=== PATIENT | female | born 1965 | race Caucasian/White ===

== ENCOUNTER 2016-09-16 12:57 | Emergency (ER) | payer SELFPAY ==
[~2016-09-16] VITALS: Ht 170.2 cm; Wt 77.3 kg
[2016-09-16 12:59] VITALS: BP 140/78; PULSE 74; RESP 17; TEMP 98.6; O2SAT 99
[2016-09-16 14:30] VITALS: BP_SYST 100; BP_SYST 139; BP_DIAS 62
[2016-09-16] MEDS ORDERED: SODIUM CHLOR 0.9% 1000 ML INJ 1,000 ML IV ONE (14:45)
[2016-09-16] MEDS ORDERED: KETOROLAC TROMETHAMINE 30 MG/ML (IVP) VIAL IV PUSH ONE (14:45)
--- NOTE | 2016-09-16 15:12 | RADRPT ---
EXAM DATE/TIME: 09/16/2016 15:04 [place] COMPARISON: No previous studies available for comparison. INDICATIONS : Shortness of breath. MEDICAL HISTORY : None. SURGICAL HISTORY : None. ENCOUNTER: Initial ACUITY: 1 month PAIN SCORE: 6/10 LOCATION: Bilateral chest FINDINGS: The lungs are clear without infiltrate, nodule, or mass. There is no appreciable pleural effusion fo r technique. Heart and mediastinum are unremarkable. CONCLUSION: No acute cardiopulmonary disease. Bobby Benson MD on September 16, 2016 at 15:11 Board Certified Radiologist. This report was verified electronically.
[2016-09-16 15:55] LABS: AUTOMATED NEUTROPHIL # 4.7 TH/MM3 (1.8-7.7); BASOPHIL % 0.6 % (0.0-2.0); EOSINOPHIL # 0.2 TH/MM3 (0-0.4); EOSINOPHIL % 2.7 % (0.0-4.0); HEMATOCRIT 36.2 % (35.0-46.0); HEMO FLAGS DIFF FINAL; LYMPH % 28.1 % (9.0-44.0); LYMPHOCYTE # 2.1 TH/MM3 (1.0-4.8); MEAN CORPUSCULAR HEMOGLOBIN 30.7 PG (27.0-34.0); MEAN CORPUSCULAR HGB CONC 32.6 % (32.0-36.0); NEUT % 61.6 % (16.0-70.0); PLATELET COUNT 259 TH/MM3 (150-450); RED BLOOD COUNT 3.85 MIL/MM3 (4.00-5.30); RED CELL DISTRIBUTION WIDTH 13.1 % (11.6-17.2); WHITE BLOOD COUNT 7.6 TH/MM3 (4.0-11.0)
[2016-09-16 16:02] LABS: BACTERIA, URINE RARE /hpf; BLOOD, URINE SMALL (NEG); COMMENT (UR) CULT NOT INDICATED; CULTURE IF INDICATED CULT NOT INDICATED; GLUCOSE,URINE NEG (NEG); KETONE, URINE NEG (NEG); MUCUS URINE FEW /lpf (OCC); NITRITE,URINE NEG (NEG); SQUAMOUS EPITHELIAL CELL URINE 1 /hpf (0-5); URINE COLOR YELLOW (YELLW/STRAW)
[2016-09-16 16:05] LABS: ALT (GPT) 41 U/L (10-53); ANION GAP 7 MEQ/L (5-15); AST (GOT) 21 U/L (15-37); BICARBONATE 25.3 MEQ/L (21.0-32.0); BLOOD UREA NITROGEN 13 MG/DL (7-18); CHLORIDE 104 MEQ/L (98-107); GLOMERULAR FILTRATION RATE 109 ML/MIN (>89); POTASSIUM 3.8 MEQ/L (3.5-5.1); SODIUM (NA) 136 MEQ/L (136-145)
[2016-09-16 16:09] LABS: ALKALINE PHOSPHATASE 67 U/L (45-117); APTT (PATIENT) 25.4 SEC (24.3-30.1); INTERNATIONAL NORMALIZED RATIO 0.9 RATIO; PROTHROMBIN TIME - PATIENT 9.8 SEC (9.8-11.6); TOTAL BILIRUBIN ADULT 0.3 MG/DL (0.2-1.0)
[2016-09-16 17:06] VITALS: BP 130/74
--- NOTE | 2016-09-16 17:15 | PD ---
HPI Chief Complaint: General Weakness Time Seen by Provider: 14:36 Travel History International Travel<30 days: No Contact w/Intl Traveler<30days: No Traveled to known affect area: No History of Present Illness HPI Patient is a 51-year-old female comes in with multiple chronic medical complaints. She says that she thinks she is dehydrated. She says that she moved here 3 weeks ago from [place]. She says in [place] she was being seen by her doctor for blood in her urine and possible kidney issues. Says she has some lower back pain. She denies fever or chills. She reports a chronic issue with vomiting, mostly in the morning. She says it seems like it is mostly acid. She says she has been drinking a lot of water, including coconut water and alkalize water. She currently does not have a primary care doctor. She denies any chest pain. She says occasionally she feels short of breath. She denies any leg swelling or pain. PFS Past Medical History Medical History: Denies Significant Hx Cardiovascular Problems: Yes (HTN) Tetanus Vaccination: < 5 Years ?: Not : 3 Para: 3 Past Surgical History Section: Yes Cholecystectomy: Yes Social History Alcohol Use: No Tobacco Use: No Substance Use: No Allergies-Medications (Allergen,Severity, Reaction): Coded Allergies: No Known Allergies (Unverified , 09/16/16) Reported Meds & Prescriptions Reported Meds & Active Scripts Active No Active Prescriptions or Reported Medications Review of Systems Except as stated in HPI: all other systems reviewed are Neg General / Constitutional: No: Fever, Chills Eyes: No: Blurred Vision HENT: No: Headaches, Lightheadedness Cardiovascular: No: Chest Pain or Discomfort Respiratory: Positive: Shortness of Breath Gastrointestinal: Positive: Vomiting, No: Abdominal Pain Musculoskeletal: Positive: Pain Skin: No Rash, No Itching, No Change in Pigmentation Neurologic: No: Weakness, Dizziness Physical Exam Narrative GENERAL: Awake and alert, in no acute distress. SKIN: Focused skin assessment warm/dry. HEAD: Atraumatic. Normocephalic. EYES: Pupils equal and round. No scleral icterus. ENT: Mucous membranes pink and moist. NECK: Trachea midline. No JVD. CARDIOVASCULAR: Regular rate and rhythm. No murmur appreciated. RESPIRATORY: No accessory muscle use. Clear to auscultation. Breath sounds equal bilaterally. GASTROINTESTINAL: Abdomen soft, non-tender, nondistended. No CVA tenderness. MUSCULOSKELETAL: No obvious deformities. No clubbing. No cyanosis. No edema. Paraspinal muscle tenderness in the lower lumbar spine. NEUROLOGICAL: Awake and alert. No obvious cranial nerve deficits. Motor grossly within normal limits. Normal speech. PSYCHIATRIC: Appropriate mood and affect; insight and judgment normal. Data Data Last Documented VS Vital Signs Date Time Temp Pulse Resp B/P Pulse Ox O2 Delivery O2 Flow Rate FiO2 09/16/16 17:06 130/74 09/16/16 12:59 98.6 74 17 99 Room Air Orders Complete Blood Count With Diff (09/16/16 14:44) Comprehensive Metabolic Panel (09/16/16 14:44) Troponin I (09/16/16 14:44) Electrocardiogram (09/16/16 ) Iv Access Insert/Monitor (09/16/16 14:44) D-Dimer (09/16/16 14:44) Act Partial Throm Time (Ptt) (09/16/16 14:44) Prothrombin Time / Inr (Pt) (09/16/16 14:44) Chest, Pa & Lat (09/16/16 ) Urinalysis - C+S If Indicated (09/16/16 14:44) Sodium Chlor 0.9% 1000 Ml Inj (Ns 1000 M (09/16/16 14:45) Ketorolac Inj (Toradol Inj) (09/16/16 14:45) Mandatory Outpatient Referral (09/16/16 16:52) Labs Laboratory Tests Test 09/16/16 09/16/16 13:12 13:15 Urine Color YELLOW Urine Turbidity CLEAR Urine pH 6.0 Urine Specific [place] 1.022 Urine Protein NEG mg/dL Urine Glucose (UA) NEG mg/dL Urine Ketones NEG mg/dL Urine Occult Blood SMALL Urine Nitrite NEG Urine Bilirubin NEG Urine Urobilinogen LESS THAN 2.0 MG/DL Urine Leukocyte Esterase NEG Urine RBC 5 /hpf Urine Squamous Epithelial 1 /hpf Cells Urine Bacteria RARE /hpf Urine Mucus FEW /lpf Microscopic Urinalysis Comment CULT NOT INDICATED White Blood Count 7.6 TH/MM3 Red Blood Count 3.85 MIL/MM3 Hemoglobin 11.8 GM/DL Hematocrit 36.2 % Mean Corpuscular Volume 94.0 FL Mean Corpuscular Hemoglobin 30.7 PG Mean Corpuscular Hemoglobin 32.6 % Concent Red Cell Distribution Width 13.1 % Platelet Count 259 TH/MM3 Mean Platelet Volume 9.0 FL Neutrophils (%) (Auto) 61.6 % Lymphocytes (%) (Auto) 28.1 % Monocytes (%) (Auto) 7.0 % Eosinophils (%) (Auto) 2.7 % Basophils (%) (Auto) 0.6 % Neutrophils # (Auto) 4.7 TH/MM3 Lymphocytes # (Auto) 2.1 TH/MM3 Monocytes # (Auto) 0.5 TH/MM3 Eosinophils # (Auto) 0.2 TH/MM3 Basophils # (Auto) 0.0 TH/MM3 CBC Comment DIFF FINAL Differential Comment Prothrombin Time 9.8 SEC Prothromb Time International 0.9 RATIO Ratio Activated Partial 25.4 SEC Thromboplast Time D-Dimer Quantitative (PE/DVT) 0.24 MG/L FEU Sodium Level 136 MEQ/L Potassium Level 3.8 MEQ/L Chloride Level 104 MEQ/L Carbon Dioxide Level 25.3 MEQ/L Anion Gap 7 MEQ/L Blood Urea Nitrogen 13 MG/DL Creatinine 0.58 MG/DL Estimat Glomerular Filtration 109 ML/MIN Rate Random Glucose 85 MG/DL Calcium Level 8.4 MG/DL Total Bilirubin 0.3 MG/DL Aspartate Amino Transf 21 U/L (AST/SGOT) Alanine Aminotransferase 41 U/L (ALT/SGPT) Alkaline Phosphatase 67 U/L Troponin I LESS THAN 0.02 NG/ML Total Protein 7.4 GM/DL Albumin 3.5 GM/DL [facility] Medical Decision Making Medical Screen Exam Complete: Yes Emergency Medical Condition: Yes Interpretation(s) ECG shows normal sinus rhythm at 60, no ST elevation or depression, normal intervals. Differential Diagnosis Dehydration versus electrolyte abnormality versus PE versus pneumonia versus muscle strain Narrative Course Patient is a 51-year-old female who comes in with multiple complaints, most of which are chronic. Exam shows paraspinal muscle tenderness. IV established, labs sent. Labs show no acute abnormalities. Urine shows small amount of blood. X-ray of the chest shows no abnormalities. D-dimer and troponin are negative. Patient given IV fluids and Toradol. Patient reports feeling Much better. Referrals placed to urology as well as gastroenterology for her chronic issues. She is advised to eat a bland diet and drink plenty of fluids. Advised to return to the emergency department as needed for any worsening symptoms. Diagnosis Primary Impression: Back pain Qualified Code: M54.5 - Acute bilateral low back pain without sciatica Referrals: [facility] call for appointment Patient Instructions: Acute Low Back Pain (ED), General Instructions Additional Instructions: Follow up with a primary care doctor. Follow up with urology and gastroenterology. Drink plenty of fluids. Return to the ED as needed for any worsening symptoms. Scripts No Active Prescriptions or Reported Meds Disposition: 01 DISCHARGE HOME Condition: Stable Mariah Love MD Sep 16, 2016 17:15
--- NOTE | 2016-09-17 12:42 | EKG ---
Date Performed: 09/16/2016 Time Performed: 15:30:06 PTAGE: 51 years EKG: Sinus rhythm NORMAL ECG NO PREVIOUS TRACING DOCTOR: Chuckie Fu Interpretating Date/Time 09/17/2016 12:39:17
== END 2016-09-16 17:20 | disposition home or self-care (01) ==
LOC: NEPD 12:57
DX: M54.5 Low back pain (principal); R06.02 Shortness of breath; R31.9 Hematuria, unspecified; R11.10 Vomiting, unspecified; I10 Essential (primary) hypertension; Z86.79 Personal history of other diseases of the circulatory system
CPT/HCPCS: 71020; 80053; 81001; 84484; 85025; 85379; 85610; 85730; 93005; 96374; 99285; J1885; J7030